=== PATIENT | female | born 1985 | race Caucasian/White ===

== ENCOUNTER 2019-08-26 13:53 | Inpatient (IN) | payer BC ==
[~2019-08-26] VITALS: Ht 154.9 cm; Wt 93.4 kg
[2019-08-26] MEDS ORDERED: TRA200 PO (15:27)
[2019-08-26] MEDS ORDERED: PREN-380 PO (15:27)
[2019-08-26] MEDS ORDERED: LACTATED RINGERS 1,000 ML IV SCH (15:27)
[2019-08-26] MEDS ORDERED: MORPHINE SULFATE 10 MG/ML VIAL IVP PRN (15:30)
[2019-08-26] MEDS ORDERED: CARBOPROST 250 MCG/ML AMP IM PRN (15:30)
[2019-08-26] MEDS ORDERED: PROMETHAZINE 25 MG/ML VIAL IVP PRN (15:30)
[2019-08-26] MEDS ORDERED: METHYLERGONOVINE 0.2 MG/ML AMP IM PRN (15:30)
[2019-08-26] MEDS ORDERED: INFLUENZA VACCINE QUAD 0.5 ML SYR IMVAC PRN (15:40)
[2019-08-26 15:41] VITALS: BP 111/64
[2019-08-26] MEDS ORDERED: MISOPROSTOL 25 MCG TAB VG SCH (16:00)
[2019-08-26 17:18] LABS: BASOPHILS % (AUTO) 0.5 % (0.0-2.0); EOSINOPHILS % (AUTO) 0.6 % (0.0-4.0); HEMATOCRIT 37.8 % (36-48); HEMOGLOBIN 12.4 g/dL (12.0-16.0); LYMPHOCYTES # (AUTO) 1.9 K/uL (2.5-16.5); LYMPHOCYTES % (AUTO) 27.6 % (20.5-51.1); MEAN CORPUSCULAR HEMOGLOBIN 27 pg (27-31); MEAN CORPUSCULAR HGB CONC 33 g/dL (33-37); MEAN CORPUSCULAR VOLUME 82.8 fL (80-94); MONOCYTES # (AUTO) 0.5 K/uL (0.8-1.0); MONOCYTES % (AUTO) 7.4 % (1.7-9.3); NEUTROPHILS # (AUTO) 4.5 K/uL (1.8-7.7); NEUTROPHILS % (AUTO) 63.9 % (42.2-75.2); PLATELET COUNT (AUTO) 204 K/uL (140-450); RED BLOOD CELL COUNT(AUTO) 4.57 MIL/uL (4.20-5.40); RED CELL DISTRIBUTION WIDTH 16.4 % (11.6-13.7)
[2019-08-26 17:45] LABS: APPEARANCE,URINE CLEAR (CLEAR); BILIRUBIN,URINE NEGATIVE (NEGATIVE); BLOOD, URINE NEGATIVE (NEGATIVE); COLOR,URINE YELLOW (YELLOW); LEUKOCYTE ESTERASE ,URINE NEGATIVE (NEGATIVE); NITRITE, URINE NEGATIVE (NEGATIVE); PH,URINE 6.5 (5.0-9.0); UGLUCOSE NEGATIVE (NEGATIVE)
[2019-08-26] MEDS ORDERED: OXYTOCIN 20 UNITS/LR PREMIX 1,000 ML IV SCH (21:30)
[2019-08-26] MEDS ORDERED: OXYTOCIN 20 UNITS/LR PREMIX 1,000 ML IV ONE (21:36)
[2019-08-26] MEDS ORDERED: LIDOCAINE 1% 500 MG/50 ML VIAL ONE (23:14)
[2019-08-26] MEDS ORDERED: oxyCODONE/APAP 5/325 MG 1 TAB TAB PO PRN (23:30)
[2019-08-26] MEDS ORDERED: OXYTOCIN 10 UNITS/ML VIAL IM PRN (23:30)
[2019-08-26] MEDS ORDERED: BENZOCAINE/MENTHOL 20%-0.5% 60 GM CAN TP PRN (23:30)
[2019-08-26] MEDS ORDERED: MEASLES, MUMPS, AND RUBELLA 1 VIAL SQVAC PRN (23:30)
[2019-08-26] MEDS ORDERED: HYDROcodone/APAP 5/325 MG 1 TAB TAB PO PRN (23:30)
[2019-08-26] MEDS ORDERED: SODIUM PHOSPHATE 118 ML ENEM RC PRN (23:30)
[2019-08-26] MEDS ORDERED: TEMAZEPAM 15 MG CAP PO PRN (23:30)
[2019-08-26] MEDS ORDERED: IBUPROFEN 800 MG TAB PO PRN (23:30)
[2019-08-27 05:18] LABS: HEMATOCRIT 35.2 % (36-48); HEMOGLOBIN 11.5 g/dL (12.0-16.0)
--- NOTE | 2019-08-27 08:31 | NUR ---
PATIENT HAS BEEN SCREENED AND CATEGORIZED LOW NUTRITION RISK. PATIENT WILL BE SEEN WITHIN 7 DAYS OF ADMISSION. 09/02/[address]
[2019-08-27] MEDS ORDERED: DOCUSATE SOD/SENNA 50/8.6 MG 1 TAB PO SCH (21:00)
== END 2019-08-28 19:12 | disposition home or self-care (01) | DRG 806 ==
LOC: MLD 13:53 → OBSVTOIN 15:27 → MFCC 08-27 02:07
PROVIDERS: ADMIT Obstetrics & Gynecology; ATTEND Obstetrics & Gynecology
PROC: 10E0XZZ Delivery of Products of Conception, External Approach (ICD-10-PCS; principal; 2019-08-26)
PROC: 0HQ9XZZ Repair Perineum Skin, External Approach (ICD-10-PCS; 2019-08-26)
PROC: 3E0P7VZ Introduction of Hormone into Female Reproductive, Via Natural or Artificial Opening (ICD-10-PCS; 2019-08-26)
PROC: 3E0234Z Introduction of Serum, Toxoid and Vaccine into Muscle, Percutaneous Approach (ICD-10-PCS; 2019-08-26)
DX: O70.0 First degree perineal laceration during delivery (principal); R71.0 Precipitous drop in hematocrit; Z37.0 Single live birth; O48.0 Post-term pregnancy; O69.81X0 Labor and delivery complicated by cord around neck, without compression, not applicable or unspecified; O14.94 Unspecified pre-eclampsia, complicating childbirth; O76 Abnormality in fetal heart rate and rhythm complicating labor and delivery; Z23 Encounter for immunization; Z3A.41 41 weeks gestation of pregnancy
CPT/HCPCS: 36415; 59200; 59409; 81003; 85018; 85025; 86592; 86886; 86900; 86901; 90707; 90715; G0378; J2001; J2270; J2590; J7120